=== PATIENT | female | born 1930 | race Caucasian/White ===

== ENCOUNTER 2018-03-18 12:09 | Emergency (ER) | payer OTHER ==
[~2018-03-18 12:09] MED LIST: ACYC1CAP16 PO; CARV3.12 PO; DENO60P SC; LISI-357 PO; PRAV40TA2 PO; VITA100020; XALA0.00 EACH EYE; [UNRECOGNIZED DRUG - CODE]; [UNRECOGNIZED DRUG - CODE]
[2018-03-18 12:21] VITALS: BP 149/73; PULSE 71; RESP 20; TEMP 97.5; O2SAT 96
[2018-03-18] MEDS ORDERED: ONDANSETRON ODT 4 MG TAB PO ONE (12:45)
[2018-03-18] MEDS ORDERED: MECLIZINE HCL 25 MG TAB PO ONE (12:45)
[2018-03-18] MEDS ORDERED: SODIUM CHLORIDE 0.9% FLUSH 10 ML FLUSH IVF PRN (12:45)
[2018-03-18] MEDS ORDERED: cloNIDine HCL 0.1 MG TAB PO ONE (12:45)
[2018-03-18] MEDS ORDERED: CARV6.25 PO (12:50)
[2018-03-18] MEDS ORDERED: ACYC400T PO (12:50)
[2018-03-18] MEDS ORDERED: LISI-519 PO (12:50)
[2018-03-18] MEDS ORDERED: PRAV40TA2 PO (12:50)
[2018-03-18] MEDS ORDERED: LATA0.002 EACH EYE (12:50)
[2018-03-18 13:16] VITALS: BP 144/78; PULSE 64; RESP 16; O2SAT 98
[2018-03-18 13:20] LABS: AUTOMATED NEUTROPHIL # 4.4 TH/MM3 (1.8-7.7); BASOPHIL % 0.6 % (0.0-2.0); EOSINOPHIL # 0.1 TH/MM3 (0-0.4); EOSINOPHIL % 1.1 % (0.0-4.0); HEMATOCRIT 39.1 % (35.0-46.0); HEMOGLOBIN 13.4 GM/DL (11.6-15.3); LYMPH % 16.6 % (9.0-44.0); MEAN CELL VOLUME 97.8 FL (80.0-100.0); MEAN CORPUSCULAR HEMOGLOBIN 33.4 PG (27.0-34.0); MEAN CORPUSCULAR HGB CONC 34.2 % (32.0-36.0); MEAN PLATELET VOLUME 6.6 FL (7.0-11.0); MONO % 7.7 % (0.0-8.0); MONOCYTE # 0.5 TH/MM3 (0-0.9); PLATELET COUNT 178 TH/MM3 (150-450); RED CELL DISTRIBUTION WIDTH 13.1 % (11.6-17.2)
--- NOTE | 2018-03-18 13:33 | PD ---
HPI Chief Complaint: Dizziness Time Seen by Provider: 12:43 Travel History International Travel<30 days: No Contact w/Intl Traveler<30days: No Traveled to known affect area: No History of Present Illness HPI She presents with complaints of dizziness since she awoke this morning. Denies any facial asymmetry slurred speech or extremity weakness. Aggravated when moving her head quickly or laying flat. Alleviated by staying still. States she feels as if the room spinning about her. Denies any chest pain shortness of breath urinary or bowel symptoms. Denies any new medications. Reports good fluid intake. Compliant with medications this morning. Denies any pain. Denies any syncope. Denies headache. Reports mild associated nausea. PFSH Past Medical History Cardiovascular Problems: Yes (Arteriovenous fistula heart) High Cholesterol: Yes Diminished Hearing: No Glaucoma: Yes Hypertension: Yes Musculoskeletal: Yes (OSTEOPOROSIS) Respiratory: Yes Immunizations Current: No Influenza Vaccination: No ?: Not Menopausal: Yes Past Surgical History Thoracic Surgery: No Tonsillectomy: Yes Social History Alcohol Use: Yes (WINE OCC.) Tobacco Use: No Substance Use: No Allergies-Medications (Allergen,Severity, Reaction): Coded Allergies: No Known Allergies (Verified , 07/13/16) Reported Meds & Prescriptions Reported Meds & Active Scripts Active Meclizine (Meclizine HCl) 25 Mg Tab 25 Mg PO BID PRN 7 Days Cipro (Ciprofloxacin HCl) 500 Mg Tab 500 Mg PO BID 3 Days Reported Coreg (Carvedilol) 6.25 Mg Tab 6.25 Mg PO BID Lisinopril 5 Mg Tab 5 Mg PO DAILY Latanoprost Opth Drops (Latanoprost) 0.005% Drops 1 Drop EACH EYE HS Refrigerate until opened. Acyclovir 400 Mg Tab 400 Mg PO BID Pravastatin 40 Mg Tab 40 Mg PO DAILY Review of Systems General / Constitutional: No: Fever Eyes: No: Visual changes HENT: No: Headaches Cardiovascular: No: Chest Pain or Discomfort Respiratory: No: Shortness of Breath Gastrointestinal: No: Abdominal Pain Genitourinary: No: Dysuria Musculoskeletal: No: Pain Skin: No Rash Neurologic: No: Weakness Psychiatric: No: Depression Endocrine: No: Polydipsia Hematologic/Lymphatic: No: Easy Bruising Physical Exam Narrative GENERAL: Alert and oriented SKIN: Focused skin assessment warm/dry. HEAD: Atraumatic. Normocephalic. EYES: Pupils equal and round. No scleral icterus. No injection or drainage. ENT: No nasal bleeding or discharge. Mucous membranes pink and moist. NECK: Trachea midline. No JVD. CARDIOVASCULAR: Regular rate and rhythm. No murmur appreciated. RESPIRATORY: No accessory muscle use. Clear to auscultation. Breath sounds equal bilaterally. GASTROINTESTINAL: Abdomen soft, non-tender, nondistended. Hepatic and splenic margins not palpable. MUSCULOSKELETAL: No obvious deformities. No clubbing. No cyanosis. No edema. NEUROLOGICAL: Awake and alert. No obvious cranial nerve deficits. Motor grossly within normal limits. Normal speech. PSYCHIATRIC: Appropriate mood and affect; insight and judgment normal. Data Data Last Documented VS Vital Signs Date Time Temp Pulse Resp B/P (MAP) Pulse Ox O2 Delivery O2 Flow Rate FiO2 03/18/18 13:55 60 16 161/76 (104) 97 Room Air 03/18/18 12:21 97.5 Orders Orders Electrocardiogram (03/18/18 12:43) Complete Blood Count With Diff (03/18/18 12:43) Comprehensive Metabolic Panel (03/18/18 12:43) Urinalysis - C+S If Indicated (03/18/18 12:43) Ecg Monitoring (03/18/18 12:43) Iv Access Insert/Monitor (03/18/18 12:43) Oximetry (03/18/18 12:43) Meclizine (Antivert) (03/18/18 12:45) Sodium Chloride 0.9% Flush (Ns Flush) (03/18/18 12:45) Ondansetron Odt (Zofran Odt) (03/18/18 12:45) Clonidine (Catapres) (03/18/18 12:45) Urine Culture (03/18/18 13:55) Labs Laboratory Tests Test 03/18/18 13:00 03/18/18 13:55 White Blood Count 6.0 TH/MM3 Red Blood Count 4.00 MIL/MM3 Hemoglobin 13.4 GM/DL Hematocrit 39.1 % Mean Corpuscular Volume 97.8 FL Mean Corpuscular Hemoglobin 33.4 PG Mean Corpuscular Hemoglobin Concent 34.2 % Red Cell Distribution Width 13.1 % Platelet Count 178 TH/MM3 Mean Platelet Volume 6.6 FL Neutrophils (%) (Auto) 74.0 % Lymphocytes (%) (Auto) 16.6 % Monocytes (%) (Auto) 7.7 % Eosinophils (%) (Auto) 1.1 % Basophils (%) (Auto) 0.6 % Neutrophils # (Auto) 4.4 TH/MM3 Lymphocytes # (Auto) 1.0 TH/MM3 Monocytes # (Auto) 0.5 TH/MM3 Eosinophils # (Auto) 0.1 TH/MM3 Basophils # (Auto) 0.0 TH/MM3 CBC Comment DIFF FINAL Differential Comment Blood Urea Nitrogen 15 MG/DL Creatinine 0.73 MG/DL Random Glucose 178 MG/DL Total Protein 7.7 GM/DL Albumin 4.0 GM/DL Calcium Level 9.6 MG/DL Alkaline Phosphatase 60 U/L Aspartate Amino Transf (AST/SGOT) 22 U/L Alanine Aminotransferase (ALT/SGPT) 28 U/L Total Bilirubin 0.7 MG/DL Sodium Level 142 MEQ/L Potassium Level 4.3 MEQ/L Chloride Level 105 MEQ/L Carbon Dioxide Level 28.9 MEQ/L Anion Gap 8 MEQ/L Estimat Glomerular Filtration Rate 76 ML/MIN Urine Collection Type CLEAN CATCH Urine Color YELLOW Urine Turbidity SL CLOUDY Urine pH 5.5 Urine Specific [place] 1.020 Urine Protein NEG mg/dL Urine Glucose (UA) NEG mg/dL Urine Ketones 15 mg/dL Urine Occult Blood TRACE Urine Nitrite POS Urine Bilirubin NEG Urine Urobilinogen 0.2 MG/DL Urine Leukocyte Esterase SMALL Urine WBC 25-49 /hpf Urine WBC Clumps MOD Urine Squamous Epithelial Cells 0-5 /hpf Urine Transitional Epithelial Cells 0-5 /hpf Urine Bacteria MANY /hpf Microscopic Urinalysis Comment CULTURE INDICATED Urine Collection Time 1355 MDM Medical Decision Making Medical Screen Exam Complete: Yes Emergency Medical Condition: Yes Differential Diagnosis Near syncope, dizziness, benign positional vertigo, sinusitis Narrative Course Assessment plan discussed with patient and friend at bedside. EKG reveals sinus rhythm rate of 71. Patient received meclizine with improvement of symptoms. Taking fluids without complication. Urinalysis reveals UTI with micro pending. Diagnosis Primary Impression: BPV (benign positional vertigo) Qualified Codes: H81.10 - Benign paroxysmal vertigo, unspecified ear Additional Impression: UTI (urinary tract infection) Qualified Codes: N39.0 - Urinary tract infection, site not specified; R31.9 - Hematuria, unspecified Patient Instructions: General Instructions Additional Instructions: Encourage fluids and cranberry. Medications as prescribed. Encouraged regular cane use. Follow-up with PCP. Return to emergency room with any onset of new symptoms. Med/Other Pt SpecificInfo: Prescription(s) given Scripts Meclizine (Meclizine) 25 Mg Tab 25 MG PO BID Y for VERTIGO for 7 Days, #14 TAB 0 Refills Prov: Quincy Quinteros MD 03/18/18 Ciprofloxacin (Cipro) 500 Mg Tab 500 MG PO BID for Infection for 3 Days, #6 TAB 0 Refills Prov: Quincy Quinteros MD 03/18/18 Disposition: 01 DISCHARGE HOME Condition: Good Quincy Quinteros MD Mar 18, 2018 13:33
[2018-03-18 13:41] LABS: CHLORIDE 105 MEQ/L (98-107); SODIUM (NA) 142 MEQ/L (136-145)
[2018-03-18 13:44] LABS: CALCIUM 9.6 MG/DL (8.5-10.1)
[2018-03-18 13:45] LABS: BICARBONATE 28.9 MEQ/L (21.0-32.0); BLOOD UREA NITROGEN 15 MG/DL (7-18); GLUCOSE,RANDOM 178 MG/DL (74-106)
[2018-03-18 13:48] LABS: ALT (GPT) 28 U/L (10-53); AST (GOT) 22 U/L (15-37); CREATININE 0.73 MG/DL (0.50-1.00); GLOMERULAR FILTRATION RATE 76 ML/MIN (>89)
[2018-03-18 13:49] LABS: TOTAL BILIRUBIN ADULT 0.7 MG/DL (0.2-1.0)
[2018-03-18 13:50] LABS: TOTAL PROTEIN 7.7 GM/DL (6.4-8.2)
[2018-03-18 13:51] LABS: ALKALINE PHOSPHATASE 60 U/L (45-117)
[2018-03-18 13:55] VITALS: BP 161/76; PULSE 60; RESP 16; O2SAT 97
[2018-03-18 14:00] LABS: BILIRUBIN, URINE NEG (NEG); BLOOD, URINE TRACE (NEG); GLUCOSE,URINE NEG (NEG); KETONE, URINE 15 mg/dL (NEG); NITRITE,URINE POS (NEG); PH, URINE 5.5 (5.0-8.5); URINE COLOR YELLOW (YELLW/STRAW); URINE LEUKOCYTE ESTERASE SMALL (NEG)
[2018-03-18 14:15] LABS: BACTERIA, URINE MANY /hpf; SQUAMOUS EPITHELIAL CELL URINE 0-5 /hpf (0-5); TRANSITIONAL EPI CELLS, URINE 0-5 /hpf; WHITE BLOOD CELL CLUMPS MOD
[2018-03-18] MEDS ORDERED: MECL-62 PO (14:23)
[2018-03-18] MEDS ORDERED: CIPR-9 PO (14:23)
--- NOTE | 2018-03-19 17:32 | EKG ---
Date Performed: 03/18/2018 Time Performed: 12:55:20 PTAGE: 87 years EKG: Sinus rhythm INTRAVENTRICULAR CONDUCTION DELAY Compared to previous tracing, the T wave changes have improved. AB NORMAL ECG PREVIOUS TRACING : 07/13/2016 11.13 DOCTOR: Alek Oro Interpretating Date/Time 03/19/2018 17:31:20
== END 2018-03-18 14:55 | disposition home or self-care (01) ==
LOC: PHED 12:09
DX: H81.10 Benign paroxysmal vertigo, unspecified ear (principal); N39.0 Urinary tract infection, site not specified; B96.20 Unspecified Escherichia coli [E. coli] as the cause of diseases classified elsewhere; R94.31 Abnormal electrocardiogram [ECG] [EKG]; E78.00 Pure hypercholesterolemia, unspecified; I10 Essential (primary) hypertension; M81.0 Age-related osteoporosis without current pathological fracture; H40.9 Unspecified glaucoma; I77.0 Arteriovenous fistula, acquired
CPT/HCPCS: 80053; 81001; 85025; 87077; 87086; 87186; 93005; 99284